=== PATIENT | female | born 1985 | race Caucasian/White ===

== ENCOUNTER 2023-07-21 13:32 | Emergency (ER) | payer OTHER, SELFPAY ==
--- NOTE | ~2023-07-21 | XR_ITS ---
EXAMINATION: XR chest 2V DATE: 07/21/2023 14:21 INDICATION: Shortness of breath. Cough. TECHNIQUE: Frontal and lateral views of the chest were obtained on 3 radiographs. COMPARISON: None. FINDINGS: There is no pneumonia, pleural effusion, or pneumothorax. The heart size is normal. IMPRESSION: 1. No acute cardiopulmonary disease. Reviewed, dictated and finalized at location A. E CUTTING MACHINE OPERATOR HELPER
[2023-07-21 13:45] VITALS: BP 131/76; PULSE 76; RESP 16; TEMP 36.7; O2SAT 100
[2023-07-21] MEDS: ALBUTEROL SULFATE NEB 2.5 MG/3 ML INH INHALATION (13:52)
[2023-07-21] MEDS: IPRATROPIUM BR 0.02% INH SOLN 0.5 MG/2.5 ML VIAL INHALATION (13:53)
[2023-07-21 14:14] VITALS: PULSE 81; RESP 24; O2SAT 92
--- NOTE | 2023-07-21 14:14 | ED.URI ---
HPI - URI/Sore Throat General Chief Complaint: Upper Respiratory Infection Stated Complaint: Shortness of Breath/Cough Time Seen by Provider: 07/21/23 13:49 Source: patient and RN notes reviewed Mode of arrival: ambulatory Limitations: no limitations History of Present Illness HPI Narrative: Patient presents today complaining of a 3 day history of cough, wheezing, shortness of breath, and Diesel congestion. Denies fever. She has been out of her Symbicort for the past 2 days. States she started with a panic attack around 4:00 a.m.. She has been using albuterol nebulizer treatments and a rescue inhaler at home that have been helping for only 20-30 minutes. Related Data Home Medications Medication Instructions Recorded Confirmed albuterol sulfate 90 mcg/actuation inhalation 07/21/23 aerosol inhaler budesonide-formoterol HFA 160 inhalation 07/21/23 mcg-4.5 mcg/actuation aerosol inhaler (Symbicort) desvenlafaxine succinate 100 mg mg PO 07/21/23 tablet,extended release 24 hr hydrochlorothiazide 25 mg tablet mg 07/21/23 Allergies Allergy/AdvReac Type Severity Reaction Status Date / Time No Known Allergies Allergy Verified 07/21/23 13:55 Review of Systems Review of Systems: CONSTITUTIONAL: Denies body aches, fever, chills, or sweats. EYES: Denies visual changes, redness, or discharge. ENT: Denies rhinorrhea, sore throat, or otalgia.+ congestion CARDIOVASCULAR: Denies chest pain, palpitations, or edema. RESPIRATORY: + cough, shortness of breath, wheezing GASTROINTESTINAL: Denies abdominal pain, nausea, vomiting, or diarrhea. GENITOURINARY: Denies dysuria or hematuria. SKIN: Denies rash, itching, or wounds. MUSCULOSKELETAL: Denies back pain, joint pain, or myalgia. NEUROLOGIC: Denies headache, numbness, tingling, or weakness. PSYCH: + panic attack [facility] Past Medical History Medical History (Updated 07/21/23 @ 14:48 by Michelle Horta, PATTERN CLERK, ) Anxiety Asthma Comments At time of signature, I have reviewed and agree with nursing past medical, surgical, social and family history unless otherwise noted. Please see nursing chart for further information. There is no relevant family history pertinent to the presenting complaint Exam Narrative: GENERAL: Mildly ill-appearing, well-nourished. HEAD: Normocephalic, atraumatic. EYES: EOMI. No redness or drainage. Conjunctivae normal. ENT: Mucous membranes pink and moist. Nares congested. No rhinorrhea. TMs normal bilaterally. Throat normal. Uvula midline. NECK: Normal AROM. Supple. No lymphadenopathy. CHEST: Tachypneic. Expiratory wheezes throughout. HEART: Regular rate and rhythm. No murmur appreciated. EXTREMITIES: Normal range of motion. No edema. SKIN: Warm, dry, no rash. Capillary refill normal. Normal skin turgor. NEURO: No focal deficits. Alert and oriented x3. Gait steady. PSYCH: Anxious Course Course Emergency Course: 1433: Patient states she is able to take a deeper breath after Duoneb. Aeration has increased. Pulse ox increased to 94-95 after treatment. Level of Care: Express Care Visit Vital Signs Vital signs: Vital Signs Temperature 98.1 F 07/21/23 13:45 Pulse Rate 76 07/21/23 13:45 Respiratory Rate 16 07/21/23 13:45 Blood Pressure 131/76 07/21/23 13:45 Pulse Oximetry 100 07/21/23 13:45 Oxygen Delivery Room Air 07/21/23 13:45 Temperature 98.1 F 07/21/23 13:45 Pulse Rate 81 07/21/23 14:14 Respiratory Rate 24 H 07/21/23 14:14 Blood Pressure 131/76 07/21/23 13:45 Pulse Oximetry 92 07/21/23 14:14 Oxygen Delivery Room Air 07/21/23 13:45 Reviewed MDM - URI/Sore Throat MDM Narrative Medical decision making narrative: Chest x-ray negative. Offered ER transfer and patient has declined. Cough and congestion is likely viral, and this has exacerbated her asthma. Will prescribe patient oral prednisone and DuoNeb treatments for home use. Anticipatory guidance given. Amisha
--- NOTE | 2023-07-21 14:22 | PC.NURSE ---
Sats up to 94-95%.
== END 2023-07-21 14:56 | disposition home or self-care (01) ==
PROVIDERS: Emergency Provider Nurse Practitioner
DX: J06.9 Acute upper respiratory infection, unspecified (principal); J45.901 Unspecified asthma with (acute) exacerbation
CPT/HCPCS: 71046; 94640; 99213; G0463